=== PATIENT | male | born 1975 | race African-American/Black ===

== ENCOUNTER 2023-12-08 01:14 | Emergency (ER) | payer MEDICAID ==
[~2023-12-08] VITALS: Ht 182.9 cm; Wt 81.8 kg
[2023-12-08 01:16] VITALS: TEMP 98.8
[2023-12-08] MEDS: DiphenhydrAMINE HCL 50 MG/ML VIAL IVP ONE (01:24)
[2023-12-08] MEDS: MethylPREDNISolone SOD SUCC 125 MG/2 ML VIAL IVP ONE (01:24)
[2023-12-08] MEDS: FAMOTIDINE 20 MG/2 ML VIAL IVP ONE (01:24)
[2023-12-08] MEDS: EPINEPHrine 1:1,000 [1 MG/ML] VIAL IM ONE (01:25)
[2023-12-08] MEDS: SODIUM CHLORIDE 0.9% 1,000 ML IV ONE (01:27)
[2023-12-08 05:15] VITALS: BP 142/93; PULSE 74; RESP 21
[2023-12-08] MEDS ORDERED: EPIN0.3P3 IM (06:30)
[2023-12-08] MEDS ORDERED: PRED-554 PO (06:30)
[2023-12-08] MEDS ORDERED: DIPH25CA85 PO (06:31)
== END 2023-12-08 06:58 | disposition home or self-care (01) ==
LOC: EMS 01:14
DX: L50.0 Allergic urticaria (principal)
CPT/HCPCS: 99291; 96374; 96375; 96361; 96372; J1200; J3490; J2919; J7030

== ENCOUNTER 2024-05-11 15:04 | Emergency (ER) | payer MEDICAID ==
[~2024-05-11] VITALS: Ht 177.8 cm; Wt 81.8 kg
[~2024-05-11 15:04] MED LIST: DIPH25CA85 PO; EPIN0.3P3 IM; PRED-554 PO
[2024-05-11 15:11] VITALS: TEMP 98.6
[2024-05-11] MEDS: HYDROCODONE/ACETAMINOPHEN 5-325 MG TABLET PO ONE (17:23)
[2024-05-11] MEDS: KETOROLAC TROMETHAMINE 60 MG/2 ML VIAL IM ONE (17:23)
[2024-05-11 17:28] VITALS: BP 138/87; PULSE 78; RESP 18; O2SAT 99
[2024-05-11] MEDS ORDERED: HYDR-4062 PO (18:20)
[2024-05-11] MEDS ORDERED: IBUP-1554 PO (18:20)
== END 2024-05-11 18:29 | disposition home or self-care (01) ==
LOC: EMS 15:04
DX: S93.401A Sprain of unspecified ligament of right ankle, initial encounter (principal); S63.502A Unspecified sprain of left wrist, initial encounter; S90.31XA Contusion of right foot, initial encounter; F12.90 Cannabis use, unspecified, uncomplicated; Z91.010 Allergy to peanuts; Z91.018 Allergy to other foods; Z79.52 Long term (current) use of systemic steroids; V29.99XA Rider (driver) (passenger) of other motorcycle injured in unspecified traffic accident, initial encounter; Y93.89 Activity, other specified; Y92.89 Other specified places as the place of occurrence of the external cause; Y99.8 Other external cause status
CPT/HCPCS: 99284; 73110; 73610; 73630; 29125; 96372; J1885